=== PATIENT | male | born 1985 | race Caucasian/White ===

== ENCOUNTER 2024-12-12 12:56 | Emergency (ER) | payer MEDICAID ==
[~2024-12-12] VITALS: Ht 167.6 cm; Wt 70.5 kg
[2024-12-12 13:00] VITALS: BP 105/49; PULSE 100; RESP 16; TEMP 97.2; O2SAT 98
--- NOTE | 2024-12-12 13:06 | Physician Documentation ---
History of Present Illness ~ Chief Complaint: Medical Clearance Stated Complaint: MED CLEARANCE Time Seen by MD: 13:03 Source: patient Mode of Arrival: POV Exam Limitations: no limitations HPI 39-year-old male needing medical clearance to [facility] for use of fentanyl. Last fentanyl use 2 days ago acute concerns Medication Reconciliation Allergies: Coded Allergies: No Known Allergies (Unverified , 12/12/24) Past Medical History Past Medical History: No Pertinent History Review of Systems All Other Systems at this time: Reviewed and Negative Physical Exam Vital Signs: RN Vital Signs have been reviewed: Yes, Temperature: 97.2, Source: Temporal, Heart Rate: 100, Respiratory Rate: 16, BP: 105/49, Pulse Oximetry: 98, Weight: 70.450 Oxygen Flow Rate: 0 Physical Exam General: Alert, no apparent distress. HEENT: moist mucous membranes. Neck: Full range of motion. Respiratory: Lungs clear, no respiratory distress. Chest: No accessory muscle use. Cardiovascular: Regular rate and rhythm, no murmurs. Extremities: Normal range of motion, no deformity. Neurologic: Oriented x4. Psychiatric: Normal mood and affect. Skin: Normal color, warm and dry. No edema, no ecchymosis. Progress Results/Orders Results/Orders Vital Signs 12/12/24 13:00 Temp 97.2 Pulse 100 Resp 16 B/P (MAP) 105/49 Pulse Ox 98 O2 Flow Rate 0 Medical Decision Making Findings Patient has no acute concerns vital signs reassuring medical clearance provided Departure Time of Disposition: 13:05 Disposition: 01 HOME / SELF CARE / HOMELESS Impression: Primary Impression: General medical exam Condition: Stable Discharge Instructions: Medical Screening Exam Additional Instructions: Patient is medically cleared for [facility] Referrals: NO PRIMARY CARE PROVIDER (PCP) Education Educated: Patient Educated regarding: diagnosis, treatment, need for follow up Signature Scribe Signature: No scribe Attestation: The note accurately reflects work and decisions made by me.Heather RUVALCABA 12/12/24 13:05 HEATHER AVENDANO NP Dec 12, 2024 13:06
== END 2024-12-12 13:20 | disposition home or self-care (01) ==
LOC: ER 12:57
DX: Z00.00 Encounter for general adult medical examination without abnormal findings (principal)
CPT/HCPCS: 99282